=== PATIENT | female | born 1950 | race Caucasian/White ===

== ENCOUNTER 2018-04-24 16:06 | Emergency (ER) | payer MEDICARE, MEDICAID ==
[~2018-04-24] VITALS: Ht 162.6 cm; Wt 65.0 kg
[2018-04-24] MEDS ORDERED: LOSA25TA12 PO (16:22)
[2018-04-24 18:00] VITALS: BP 142/68
== END 2018-04-24 18:12 | disposition home or self-care (01) ==
LOC: ER 16:06
DX: J06.9 Acute upper respiratory infection, unspecified (principal); H92.03 Otalgia, bilateral; E11.9 Type 2 diabetes mellitus without complications; I10 Essential (primary) hypertension; Z79.899 Other long term (current) drug therapy
CPT/HCPCS: 82962; 99283